=== PATIENT | female | born 1995 | race Caucasian/White ===

== ENCOUNTER 2019-06-13 17:02 | Emergency (ER) | payer MEDICAID ==
[2019-06-13] MEDS ORDERED: FLU Vacc QS2019-20(6MOS+)/PF 60 MCG/0.5 ML SYRINGE IM ONE (17:30)
--- NOTE | 2019-06-13 18:30 | EDM.PDOC ---
ED HPI GENERAL MEDICAL PROBLEM - General Chief Complaint: Back Pain or Injury Stated Complaint: FALL,SLIPPED ON ICE (BACK PAIN) Time Seen by Provider: 06/13/19 18:25 Source of Information: Reports: Patient History Limitations: Reports: No Limitations - History of Present Illness INITIAL COMMENTS - FREE TEXT/NARRATIVE: 23-year-old female attends the ED after being pulled down a flight of concrete stairs outside her home by her dog. She slipped on ice he surface and went down all of the concrete stairs on her lower back and left buttock and hip area. This occurred around 1630 hrs. today. She denies hitting her head or losing consciousness. Denies any pain in her upper extremities such as fingers wrists elbows. Pain is confined primarily to the lower back and left posterior iliac crest and left hip particularly over the greater trochanteric process. She can weight-bear but is limping badly. She reports she's had a previous low back injury. Onset: Today Onset Date: 06/13/19 Onset Time: 16:30 Duration: Hour(s): Location: Reports: Back, Pelvis (Lower back left pelvic brim of the pelvis), Lower Extremity, Left Quality: Reports: Ache (Left hip particular greater trochanteric process), Throbbing Severity: Moderate Improves with: Reports: Rest (7 out of 10) Worsens with: Reports: Other, Movement Context: Reports: Trauma (Slipped and fell while her dog pulled her down a flight of concrete stairs outside her home.). Denies: Activity (An attempt to weight-bear), Exercise, Lifting, Sick Contact Associated Symptoms: Reports: No Other Symptoms Treatments OFFICE ASSISTANT RECEPTIONIST: Reports: Other (see below) (None.) Right Back Pain Score (Numeric/FACES): 6 - Related Data Allergies Allergy/AdvReac Type Severity Reaction Status Date / Time metoclopramide [From Reglan] Allergy Disorientat Verified 06/13/19 17:15 ion prochlorperazine Allergy Disorientat Verified 06/13/19 17:15 [From Compazine] ion Home Meds: Home Meds Naproxen Sodium [Aleve] 1 tab PO DAILY PRN 06/13/19 [History] Omeprazole 20 mg PO DAILY 06/13/19 [History] oxyCODONE HCl/Acetaminophen [Percocet 5-325 mg Tablet] 1 - 2 each PO Q4H PRN # 20 tablet 06/13/19 [Rx] Past Medical History HEENT History: Reports: Impaired Vision Gastrointestinal History: Reports: GERD Neurological History: Reports: Migraines Psychiatric History: Reports: Anxiety, Depression - Past Surgical History HEENT Surgical History: Reports: Tonsillectomy GI Surgical History: Reports: Cholecystectomy Musculoskeletal Surgical History: Reports: Other (See Below) Other Musculoskeletal Surgeries/Procedures:: left dorsal tendon release Social & Family History - Family History Family Medical History: Noncontributory - Tobacco Use Smoking Status *Q: Never Smoker - Caffeine Use Caffeine Use: Reports: Coffee - Recreational Drug Use Recreational Drug Use: No - Living Situation & Occupation Living situation: Reports: Single Occupation: Employed ED ROS GENERAL - Review of Systems Review Of Systems: See Below Constitutional: Denies: Fever, Chills, Malaise, Weakness, Fatigue HEENT: Reports: No Symptoms Respiratory: Reports: No Symptoms Cardiovascular: Reports: No Symptoms Endocrine: Reports: No Symptoms GI/Abdominal: Reports: Other : Reports: No Symptoms Musculoskeletal: Reports: Back Pain (Chronic low back pain.) Skin: Reports: No Symptoms Neurological: Reports: No Symptoms Psychiatric: Reports: No Symptoms ED EXAM,LOWER BACK PAIN/INJURY - Physical Exam Exam: See Below Exam Limited By: No Limitations General Appearance: Alert, WD/WN, Mild Distress, Other (Vital signs show temperature 36.7. Heart rate is 84 and sinuses pressure to 16 with O2 sats of 99 %. BP is mildly elevated at 1 4101.) Throat/Mouth: Normal Inspection, Normal Lips, Normal Oropharynx, Other Head: Atraumatic (No dental or tongue injuries.), Normocephalic, Other. No: Facial Swelling, Facial Tenderness Neck: Normal Inspection, Supple (No signs of head or facial trauma.), Non-Tender , Full Range of Motion. No: Lymphadenopathy (L), Lymphadenopathy (R) Respiratory/Chest: No Respiratory Distress, Lungs Clear, Normal Breath Sounds ( No chest wall injuries.), No Accessory Muscle Use, Chest Non-Tender, Other Cardiovascular: Normal Peripheral Pulses, Regular Rate, Rhythm, No Edema, No Gallop, No Murmur, No Rub GI/Abdominal: No Organomegaly, No Mass Back Exam: Other (Patient is tender in the midline of the lumbar spine particularly L3-4 and 5 levels. Tender transverse processes on the left side as well at the same levels. Tender in the quadratus lumborum muscles of the left side and over the posterior iliac crest. Also pain in the buttock with no palpable hematoma yet and pain in the greater trochanter of her left hip. Over the bursa. She is able to weight-bear but is limping). No: CVA Tenderness (L), CVA Tenderness (R) Extremities: Normal Inspection, Other (Length limping gait due to pain in the left lateral hip and buttock musculature ). No: Normal Range of Motion, Non- Tender Neurological: Alert, Normal Mood/Affect, Normal Dorsiflexion, CN II-XII Intact, Normal Reflexes. No: Normal Gait Psychiatric: Normal Affect, Normal Mood Skin Exam: Warm, Dry, Intact, Normal Color, No Rash Course - Vital Signs Last Recorded V/S: Last Vital Signs Temp 36.7 C 06/13/19 17:11 Pulse 84 06/13/19 17:11 Resp 16 06/13/19 17:11 BP 148/101 H 06/13/19 17:11 Pulse Ox 99 06/13/19 17:11 - Orders/Labs/Meds Orders: Active Orders 24 hr Category Date Time Status Influenza Vaccine Charge [RC] .DISCHARGE Care 06/13/19 17:18 Active Lumbar Spine 2 or 3V [CR] Stat Exams 06/13/19 18:29 Taken Pelvis 1V or 2V [CR] Stat Exams 06/13/19 18:28 Taken Meds: Medications Discontinued Medications Generic Name Dose Route Start Last Admin Trade Name Freq PRN Reason Stop Dose Admin Influenza Virus Vaccine 1 each 06/13/19 17:18 Pharmacy To Dose - Influenza Vaccine IM 06/13/19 17:19 ONETIME ONE Influenza Virus Vaccine 60 mcg 06/13/19 17:30 06/13/19 17:29 Fluzone Quad [id number] Syringe IM 06/13/19 17:31 60 mcg .ONCE ONE Administration - Radiology Interpretation Free Text/Narrative:: 23-year-old female presents to the ED after slipping and falling down concrete stairs outside her home while taking her dog for a walk. The dog Avelina date good jerk causing her to lose her balance and she fell down the stairs injuring her lower back particularly L3-4 and 5 level and left buttock and left pelvic crest particularly posteriorly and the left greater trochanter of her hip. She is walking with a definitive limp. Plan x-ray lumbar spine 3 view and x-ray of the pelvis to be done. - Re-Assessments/Exams Free Text/Narrative Re-Assessment/Exam: 06/13/19 19:14 x-rays of the lumbar spine reveal no fractures. There was an area of questionable fracture across the transverse process on the left side at L4 but I think it is artifact. X-rays of the pelvis also did not reveal any fractures within the pelvis or hips. Treatment is ice pack to the hip one half hour out of every 4 hours for the next 2-3 days. Continue Aleve 2 tablets every 8 hours to reduce pain and inflammation. Percocet tabs 5/325 mg one or 2 every 4 -6 hours as needed for pain relief for the next 3 or 4 days. 20 tablets provided Expect to be much more stiff and sore over the next 24-48 hours and then slowly improved. Suggest chiropractic manipulation under left upper back as he appears to be rib head subluxation at thoracic level 9-10. Departure - Departure Time of Disposition: 19:16 Disposition: Home, Self-Care 01 Condition: Fair Clinical Impression: Contusion of left hip, initial encounter, Contusion of lower back and pelvis, initial encounter Contusion of buttock Qualifiers: Encounter type: initial encounter Qualified Code(s): S30.0XXA - Contusion of lower back and pelvis, initial encounter - Discharge Information *PRESCRIPTION DRUG MONITORING PROGRAM REVIEWED*: No *COPY OF PRESCRIPTION DRUG MONITORING REPORT IN PATIENT DHIRAJ: No Prescriptions: oxyCODONE HCl/Acetaminophen [Percocet 5-325 mg Tablet] 1 - 2 each PO Q4H PRN # 20 tablet PRN Reason: pain relief. Instructions: Muscle Strain, [id number], Contusion, [id number], Chronic Back Pain Referrals: Marie Osullivan MD [Primary Care Provider] - Forms: ED Department Discharge Additional Instructions: Evaluation in the emergency him today in regards to slip and fall down concrete stairs with blunt trauma to your lower back and left posterior iliac crest and buttock and left hip. X-rays of the pelvis and lumbar spine proved to be negative for any bony injuries. Soft tissue injuries to the underlying muscles have occurred. Bleeding into the soft tissues goes on for up to 48 hours post injury. Ideally rest and ice for the next 48 hours to sore areas. Continue Aleve 2 tablets every 8 hours as needed to reduce pain and inflammation. Etc. tablets 5/325 mg one or 2 every 4-6 hours as needed for pain relief for the next 2-3 days. Expect pain and tenderness to worsen over the next 24-48 hours and then gradually improved. Again suggest follow-up with chiropractor later this week as planned. - My Orders Last 24 Hours: My Active Orders 06/13/19 18:28 Pelvis 1V or 2V [CR] Stat 06/13/19 18:29 Lumbar Spine 2 or 3V [CR] Stat - Assessment/Plan Last 24 Hours: My Active Orders 06/13/19 18:28 Pelvis 1V or 2V [CR] Stat 06/13/19 18:29 Lumbar Spine 2 or 3V [CR] Stat
--- NOTE | 2019-06-14 07:10 | CR ---
Pelvis: AP view of the pelvis was obtained. Comparison: No prior pelvis exam. Joint spaces within both hips are maintained. Sacroiliac joints appear within normal limits. Incidental note of IUD within the pelvis. No fracture or other bony abnormality is seen. Impression: 1. Nothing acute is identified on AP pelvis study. Diagnostic code #1
--- NOTE | 2019-06-14 07:22 | CR ---
Lumbar spine: AP, lateral and coned down lateral views centered to the lumbosacral junction were obtained. Comparison: No previous lumbar spine imaging. Vertebral body heights and disc spaces are maintained. Pedicles are intact. Transverse and spinous processes are intact. Surgical clips are noted from prior cholecystectomy. IUD is noted within the pelvis. Impression: 1. Findings which are felt to be incidental. 2. Nothing acute is appreciated on three-view lumbar spine study. Diagnostic code #2
== END 2019-06-13 19:39 | disposition home or self-care (01) ==
LOC: JD.ED 17:02
DX: S30.0XXA Contusion of lower back and pelvis, initial encounter (principal); S70.02XA Contusion of left hip, initial encounter; Z23 Encounter for immunization; K21.9 Gastro-esophageal reflux disease without esophagitis; Z88.8 Allergy status to other drugs, medicaments and biological substances; Z79.899 Other long term (current) drug therapy; W00.1XXA Fall from stairs and steps due to ice and snow, initial encounter; Y92.009 Unspecified place in unspecified non-institutional (private) residence as the place of occurrence of the external cause
CPT/HCPCS: 72100; 72100-26; 72170; 72170-26; 90471; 90686; 99283; 99283-25

== ENCOUNTER 2019-07-06 21:09 | Emergency (ER) | payer MEDICAID ==
--- NOTE | 2019-07-06 21:46 | EDM.PDOC ---
ED HPI GENERAL MEDICAL PROBLEM - General Chief Complaint: Back Pain or Injury Stated Complaint: FALL ON ICE Time Seen by Provider: 07/06/19 21:31 Source of Information: Reports: Patient, RN Notes Reviewed - History of Present Illness INITIAL COMMENTS - FREE TEXT/NARRATIVE: 23 year old female slipped on ice this past morning 8 to 10 hrs ago. Her feet and legs went forward falling flat on her back. She thinks she hit her head but no LOC. She has had some Shepherd today but not severe. Mild neck soreness. Major pain is Low back and also L ribs. States she fell more to the L side. There has been no nausea or vomiting. She is not short of breath. She does feel L chest wall pain with certain motion and with deep breathing. Middle Back Pain Score (Numeric/FACES): 8 - Related Data Allergies Allergy/AdvReac Type Severity Reaction Status Date / Time metoclopramide [From Reglan] Allergy Disorientat Verified 07/06/19 21:25 ion prochlorperazine Allergy Disorientat Verified 07/06/19 21:25 [From Compazine] ion sumatriptan [From Imitrex] Allergy Airway Verified 07/06/19 21:25 Tightness Home Meds: Home Meds . [No Known Home Meds] 07/06/19 [History] Past Medical History HEENT History: Reports: Impaired Vision Gastrointestinal History: Reports: GERD Neurological History: Reports: Migraines Psychiatric History: Reports: Anxiety, Depression, Suicidal Ideation - Past Surgical History HEENT Surgical History: Reports: Oral Surgery, Tonsillectomy Other HEENT Surgeries/Procedures: [place] teeth extraction GI Surgical History: Reports: Cholecystectomy Musculoskeletal Surgical History: Reports: Other (See Below) Other Musculoskeletal Surgeries/Procedures:: left dorsal tendon release Social & Family History - Family History Family Medical History: Noncontributory - Tobacco Use Smoking Status *Q: Former Smoker Used Tobacco, but Quit: Yes Month/Year Tobacco Last Used: 2017 - Caffeine Use Caffeine Use: Reports: Coffee - Recreational Drug Use Recreational Drug Use: No - Living Situation & Occupation Living situation: Reports: Single Occupation: Employed ED ROS GENERAL - Review of Systems Review Of Systems: See Below Constitutional: Reports: No Symptoms HEENT: Denies: Ear Discharge, Vertigo, Vision Change Respiratory: Reports: Pleuritic Chest Pain. Denies: Shortness of Breath Cardiovascular: Reports: Chest Pain GI/Abdominal: Denies: Abdominal Pain, Nausea, Vomiting Musculoskeletal: Reports: Neck Pain (mild neck soreness), Shoulder Pain (Mild L shoulder pain ) Skin: Denies: Bruising Neurological: Reports: Dizziness (mild), Headache. Denies: Numbness, Tingling, Trouble Speaking, Difficulty Walking, Weakness, Change in Speech, Gait Disturbance ED EXAM,LOWER BACK PAIN/INJURY - Physical Exam Exam: See Below General Appearance: Alert, No Apparent Distress Eye Exam: Bilateral Eye: PERRL Ears: Normal External Exam Nose: Normal Inspection Throat/Mouth: Normal Inspection Head: Atraumatic, Other (no scalp swelling or tenderness, no facial swelling) Respiratory/Chest: No Respiratory Distress, Lungs Clear, Normal Breath Sounds, Other (very mild tenderness L lat chest wall) GI/Abdominal: Soft, Non-Tender Back Exam: Paraspinal Tenderness (mild low back tenderness) Extremities: Normal Inspection, Normal Range of Motion Neurological: Alert, No Motor/Sensory Deficits, Other (finger to nose normal) Skin Exam: Warm, Dry, Normal Color Course - Vital Signs Last Recorded V/S: Last Vital Signs Temp 98.2 F 07/06/19 21:26 Pulse 90 07/06/19 21:26 Resp 18 07/06/19 21:26 BP 129/92 H 07/06/19 21:26 Pulse Ox 100 07/06/19 21:26 - Re-Assessments/Exams Free Text/Narrative Re-Assessment/Exam: 07/07/19 09:59 CT of head was not clinically indicated. I did offer to check Xrays of Lumbar spine and L ribs although clinically the liklihood of fx is very low. She does not feel anything is broken. She did want to have an eval. to be safe. Discharge instr. as documented. Departure - Departure Time of Disposition: 22:00 Disposition: Home, Self-Care 01 Condition: Fair Clinical Impression: Fall Qualifiers: Encounter type: initial encounter Qualified Code(s): W19.XXXA - Unspecified fall, initial encounter Chest wall contusion Qualifiers: Encounter type: initial encounter Laterality: left Qualified Code(s): S20.212A - Contusion of left front wall of thorax, initial encounter Contusion of lower back Qualifiers: Encounter type: initial encounter Qualified Code(s): S30.0XXA - Contusion of lower back and pelvis, initial encounter Head concussion Qualifiers: Encounter type: initial encounter Loss of consciousness presence/duration: without LOC Qualified Code(s): S06.0X0A - Concussion without loss of consciousness, initial encounter - Discharge Information Instructions: Contusion, [id number] Referrals: Marie Osullivan MD [Primary Care Provider] - Forms: ED Department Discharge Additional Instructions: rest, increase activity slowly as tolerated. Alternate ice and heat to areas of injury as needed. Aleve twice daily with food, you may take tylenol in addition up to 3 times daily if needed for further pain relief. Follow up clinic if not much better within 2 to 3 days as expected. Return to ED as needed if symptoms worsening in any way.
== END 2019-07-06 22:13 | disposition home or self-care (01) ==
LOC: JD.ED 21:09
DX: S06.0X0A Concussion without loss of consciousness, initial encounter (principal); S30.0XXA Contusion of lower back and pelvis, initial encounter; S20.212A Contusion of left front wall of thorax, initial encounter; Z87.891 Personal history of nicotine dependence; Z88.8 Allergy status to other drugs, medicaments and biological substances; W00.0XXA Fall on same level due to ice and snow, initial encounter
CPT/HCPCS: 99282; 99283

== ENCOUNTER 2020-03-17 10:20 | Emergency (ER) | payer OTHER, MEDICAID ==
--- NOTE | 2020-03-17 10:55 | EDM.PDOC ---
ED HPI GENERAL MEDICAL PROBLEM - General Chief Complaint: Back Pain or Injury Stated Complaint: LOWER BACK PAIN Time Seen by Provider: 03/17/20 10:44 - History of Present Illness INITIAL COMMENTS - FREE TEXT/NARRATIVE: This 24-year-old female presents the emergency room with low back pain. This started after cleaning the garage 2 days ago. And she admits she was lifting some stuff that she probably should have lifted by herself and was not using proper lifting technique.. She has injured her back in the past. Last night she did take a muscle relaxant that in 2014 and she had some relief with that was able to rest did not necessarily sleep too good. Patient has no loss of bowel or bladder control no numbness or tingling sensation in her feet or legs. Left Lower Back Pain Score (Numeric/FACES): 8 - Related Data Allergies Allergy/AdvReac Type Severity Reaction Status Date / Time metoclopramide [From Reglan] Allergy Disorientat Verified 07/06/19 21:25 ion prochlorperazine Allergy Disorientat Verified 07/06/19 21:25 [From Compazine] ion sumatriptan [From Imitrex] Allergy Airway Verified 07/06/19 21:25 Tightness Home Meds: Home Meds Cyclobenzaprine [Flexeril] 10 mg PO BEDTIME PRN #10 tab 03/17/20 [Rx] Past Medical History HEENT History: Reports: Impaired Vision Gastrointestinal History: Reports: GERD Neurological History: Reports: Migraines Psychiatric History: Reports: Anxiety, Depression, Suicidal Ideation - Past Surgical History HEENT Surgical History: Reports: Oral Surgery, Tonsillectomy Other HEENT Surgeries/Procedures: [place] teeth extraction GI Surgical History: Reports: Cholecystectomy Musculoskeletal Surgical History: Reports: Other (See Below) Other Musculoskeletal Surgeries/Procedures:: left dorsal tendon release Social & Family History - Family History Family Medical History: Noncontributory - Tobacco Use Smoking Status *Q: Never Smoker - Caffeine Use Caffeine Use: Reports: Coffee - Living Situation & Occupation Living situation: Reports: Single Occupation: Employed ED ROS GENERAL - Review of Systems Review Of Systems: See Below Constitutional: Reports: No Symptoms. Denies: Fever, Chills Respiratory: Reports: No Symptoms Cardiovascular: Reports: No Symptoms GI/Abdominal: Reports: No Symptoms : Reports: No Symptoms Musculoskeletal: Reports: Back Pain Skin: Reports: No Symptoms Neurological: Reports: No Symptoms ED EXAM,LOWER BACK PAIN/INJURY - Physical Exam Exam: See Below Exam Limited By: No Limitations General Appearance: Alert, No Apparent Distress Head: Atraumatic, Normocephalic Neck: Normal Inspection, Supple, Non-Tender, Full Range of Motion. No: Lymphadenopathy (L), Lymphadenopathy (R) Respiratory/Chest: No Respiratory Distress, Lungs Clear, Normal Breath Sounds Cardiovascular: Regular Rate, Rhythm, No Edema, No Murmur GI/Abdominal: Normal Bowel Sounds, Soft, Non-Tender Back Exam: Normal Inspection, Other (Has some left paraspinous muscle spasm. This extends into the buttocks but really does not go into the thigh very far. Straight leg raises are nondiagnostic). No: Vertebral Tenderness Course - Vital Signs Last Recorded V/S: Last Vital Signs Temp 36.7 C 03/17/20 10:29 Pulse 93 03/17/20 10:29 Resp 18 03/17/20 10:29 BP 135/97 H 03/17/20 10:29 Pulse Ox 100 03/17/20 10:29 - Orders/Labs/Meds Meds: Medications Discontinued Medications Generic Name Dose Route Start Last Admin Trade Name Maik PRN Reason Stop Dose Admin Ketorolac Tromethamine 30 mg 03/17/20 11:00 03/17/20 11:12 Toradol IM 03/17/20 11:01 30 mg ONETIME ONE Administration - Re-Assessments/Exams Free Text/Narrative Re-Assessment/Exam: 03/17/20 11:27 At this point we gave shot of Toradol 30 mg IM the patient is noticing some improvement. We will discharge her home with a prescription of Flexeril to use at bedtime. Departure - Departure Time of Disposition: 11:28 Disposition: Home, Self-Care 01 Clinical Impression: Low back strain - Discharge Information Referrals: Marie Osullivan NP [Primary Care Provider] - Forms: ED Department Discharge Additional Instructions: Return to the emergency room with any questions problems or worsening symptoms. Use the naproxen 2 pills twice daily with your morning and evening meals. You have been given a prescription for Flexeril, cyclobenzaprine, this is a muscle relaxant take 1 nightly for the next 3-4 nights and then as needed thereafter. Follow-up in the clinic next week if needed. Sepsis Event Note (ED) - Evaluation Sepsis Screening Result: No Definite Risk - Focused Exam Vital Signs: Vital Signs Temp Pulse Resp BP Pulse Ox 03/17/20 10:29 36.7 C 93 18 135/97 H 100
[2020-03-17] MEDS ORDERED: Ketorolac 30 MG/ML SDV IM ONE (11:00)
== END 2020-03-17 11:50 | disposition home or self-care (01) ==
LOC: JD.ED 10:20
DX: S39.012A Strain of muscle, fascia and tendon of lower back, initial encounter (principal); Z88.8 Allergy status to other drugs, medicaments and biological substances; X50.9XXA Other and unspecified overexertion or strenuous movements or postures, initial encounter
CPT/HCPCS: 96372; 99283; J1885

== ENCOUNTER 2021-02-24 09:35 | Emergency (ER) | payer MEDICAID, OTHER ==
--- NOTE | 2021-02-24 10:05 | EDM.PDOC ---
ED HPI GENERAL MEDICAL PROBLEM - General Chief Complaint: Back Pain or Injury Stated Complaint: BACK PAIN Time Seen by Provider: 02/24/21 10:02 Source of Information: Reports: Patient, RN Notes Reviewed - History of Present Illness INITIAL COMMENTS - FREE TEXT/NARRATIVE: 25 yr old female with exacerbation of low back pain that she has had chronically for at least several yrs. Has been prescribed tramadol in the past which has helped, ran out a few weeks ago. 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 - Related Data Allergies Allergy/AdvReac Type Severity Reaction Status Date / Time metoclopramide [From Reglan] Allergy Disorientat Verified 02/24/21 09:45 ion prochlorperazine Allergy Disorientat Verified 02/24/21 09:45 [From Compazine] ion sumatriptan [From Imitrex] Allergy Airway Verified 02/24/21 09:45 Tightness Home Meds: Home Meds Ibuprofen [Motrin] 800 mg PO TID #20 tablet 02/24/21 [Rx] traMADol [Ultram] 50 mg PO Q6H PRN #20 tab 02/24/21 [Rx] Past Medical History HEENT History: Reports: Impaired Vision Gastrointestinal History: Reports: GERD Musculoskeletal History: Reports: Back Pain, Chronic Neurological History: Reports: Headaches, Chronic, Migraines Psychiatric History: Reports: Anxiety, Depression, Suicidal Ideation Endocrine/Metabolic History: Reports: Obesity/BMI 30+ - Past Surgical History HEENT Surgical History: Reports: Oral Surgery, Tonsillectomy Other HEENT Surgeries/Procedures: [place] teeth extraction GI Surgical History: Reports: Cholecystectomy Musculoskeletal Surgical History: Reports: Other (See Below) Other Musculoskeletal Surgeries/Procedures:: left dorsal tendon release Social & Family History - Family History Family Medical History: No Pertinent Family History - Tobacco Use Tobacco Use Status *Q: Never Tobacco User Second Hand Smoke Exposure: No - Caffeine Use Caffeine Use: Reports: Coffee, Tea - Recreational Drug Use Recreational Drug Use: Yes Drug Use in Last 12 Months: Yes Recreational Drug Type: Reports: Marijuana/Hashish Recreational Drug Use Frequency: Daily Recreational Drug Last Use: 02/23/21 - Living Situation & Occupation Living situation: Reports: Single Occupation: Employed ED ROS GENERAL - Review of Systems Review Of Systems: See Below Constitutional: Denies: Fever, Chills HEENT: Reports: No Symptoms Respiratory: Reports: No Symptoms Cardiovascular: Reports: No Symptoms GI/Abdominal: Reports: No Symptoms Musculoskeletal: Reports: Back Pain. Denies: Leg Pain Skin: Reports: No Symptoms Neurological: Reports: No Symptoms ED EXAM,LOWER BACK PAIN/INJURY - Physical Exam Exam: See Below General Appearance: Alert, Mild Distress Head: Atraumatic Neck: Supple Respiratory/Chest: No Respiratory Distress Back Exam: Paraspinal Tenderness (L low back, no visible swelling or erythema) Extremities: Normal Inspection, Normal Range of Motion Neurological: Alert, No Motor/Sensory Deficits Course - Vital Signs Last Recorded V/S: Last Vital Signs Temp 97.3 F 02/24/21 09:42 Pulse 95 02/24/21 09:42 Resp 14 02/24/21 09:42 BP 124/98 H 02/24/21 09:48 Pulse Ox 100 02/24/21 09:42 Departure - Departure Time of Disposition: 10:16 Disposition: Home, Self-Care 01 Condition: Fair Clinical Impression: Back pain Qualifiers: Back pain location: low back pain Chronicity: acute Back pain laterality: midline Sciatica presence: without sciatica Qualified Code(s): M54.5 - Low back pain - Discharge Information Prescriptions: Ibuprofen [Motrin] 800 mg PO TID #20 tablet traMADol [Ultram] 50 mg PO Q6H PRN #20 tab PRN Reason: Pain Instructions: Acute Back Pain, Adult Referrals: Marie Osullivan GROUP BURNER MACHINE [Primary Care Provider] - Forms: ED Department Discharge Additional Instructions: motrin 800 mg 3 times daily for pain and inflammation. Tylenol in addition in between doses for extra pain relief. You may take tramadol q 6 to 8 hr for severe pain and especially at bedtime. [facility]. Alternate ice and heat as needed. Follow up clinic in about 5 to 7 days if not much better as expected. Sepsis Event Note (ED) - Evaluation Sepsis Screening Result: No Definite Risk - Focused Exam Vital Signs: Vital Signs Temp Pulse Resp BP Pulse Ox 02/24/21 09:48 124/98 H 02/24/21 09:42 97.3 F 95 14 132/109 H 100
== END 2021-02-24 10:28 | disposition home or self-care (01) ==
LOC: JD.ED 09:35
DX: M54.5 Low back pain (principal); E66.9 Obesity, unspecified; Z68.35 Body mass index [BMI] 35.0-35.9, adult; Z88.8 Allergy status to other drugs, medicaments and biological substances
CPT/HCPCS: 99283

== ENCOUNTER 2021-04-09 12:47 | Emergency (ER) | payer MEDICAID ==
--- NOTE | 2021-04-09 14:12 | EDM.PDOC ---
ED HPI GENERAL MEDICAL PROBLEM - General Chief Complaint: Respiratory Problem Stated Complaint: COVID SX Time Seen by Provider: 04/09/21 13:33 Source of Information: Reports: Patient History Limitations: Reports: No Limitations - History of Present Illness INITIAL COMMENTS - FREE TEXT/NARRATIVE: 25-year-old female presents the emergency department with complaints of sore throat, decreased appetite, headache, cough, shortness of breath, nausea, diarrhea and decreased taste and smell. The patient states she was tested for Covid yesterday at the walk-in clinic and it was negative however today when she lost her taste and smell she elected to come to the emergency department. She states she has had her Covid vaccinations, Materna. She states prior to this she was healthy and has no significant past medical history. 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 (see below) Other Treatments VISCOSITY INSPECTOR: nyquil; mucinex Headache Pain Score (Numeric/FACES): 6 Throat Pain Score (Numeric/FACES): 7 Generalized Pain Score (Numeric/FACES): 7 - Related Data Allergies Allergy/AdvReac Type Severity Reaction Status Date / Time sumatriptan [From Imitrex] Allergy Severe Airway Verified 04/09/21 13:39 Tightness metoclopramide [From Reglan] AdvReac Severe Disorientat Verified 04/09/21 13:39 ion prochlorperazine AdvReac Severe Disorientat Verified 04/09/21 13:39 [From Compazine] ion Home Meds: Home Meds Ibuprofen [Motrin] 800 mg PO TID PRN 04/09/21 [History] Past Medical History HEENT History: Reports: Impaired Vision Gastrointestinal History: Reports: GERD Musculoskeletal History: Reports: Back Pain, Chronic Neurological History: Reports: Headaches, Chronic, Migraines Psychiatric History: Reports: Anxiety, Depression, Suicidal Ideation Endocrine/Metabolic History: Reports: Obesity/BMI 30+ - Past Surgical History HEENT Surgical History: Reports: Oral Surgery, Tonsillectomy Other HEENT Surgeries/Procedures: [place] teeth extraction GI Surgical History: Reports: Cholecystectomy Musculoskeletal Surgical History: Reports: Other (See Below) Other Musculoskeletal Surgeries/Procedures:: left dorsal tendon release Social & Family History - Family History Family Medical History: No Pertinent Family History - Tobacco Use Tobacco Use Status *Q: Former Tobacco User Used Tobacco, but Quit: Yes Month/Year Tobacco Last Used: 4 yr - Caffeine Use Caffeine Use: Reports: Coffee - Recreational Drug Use Recreational Drug Type: Reports: Other (see below) Other Recreational Drug Type: medical card for marijuana fo backpain - Living Situation & Occupation Living situation: Reports: Single Occupation: Employed ED ROS GENERAL - Review of Systems Review Of Systems: Comprehensive ROS is negative, except as noted in HPI. ED EXAM, GENERAL - Physical Exam Exam: See Below Exam Limited By: No Limitations General Appearance: Alert, WD/WN, Mild Distress Ears: Normal External Exam, Hearing Grossly Normal Nose: Normal Inspection Throat/Mouth: Normal Inspection, Normal Lips, Normal Voice, No Airway Compromise Head: Atraumatic Neck: Normal Inspection, Supple Respiratory/Chest: No Respiratory Distress, Lungs Clear, No Accessory Muscle Use, Chest Non-Tender, Decreased Breath Sounds Cardiovascular: Normal Peripheral Pulses, Regular Rate, Rhythm, No Murmur Peripheral Pulses: 2+: Radial (L), Radial (R) GI/Abdominal: Normal Bowel Sounds, Soft, Non-Tender, No Distention (Female) Exam: Deferred Rectal (Female) Exam: Deferred Back Exam: Normal Inspection Extremities: Normal Inspection Neurological: Alert, Oriented, Normal Cognition Psychiatric: Normal Affect, Normal Mood Skin Exam: Warm, Dry, Intact, Normal Color, No Rash Lymphatic: No Adenopathy Course - Vital Signs Text/Narrative:: Patient presents with Covid type symptoms despite having her vaccination. States she tested negative for Covid yesterday however lost her sense of taste and smell today and elected to come to the ER. I have ordered a Covid swab as well as labs to include CBC, BMP, hepatic function studies, ferritin, LDH, portable chest x-ray and an EKG. Last Recorded V/S: Last Vital Signs Temp 97.8 F 04/09/21 13:45 Pulse 103 H 04/09/21 13:45 Resp 20 04/09/21 13:45 BP 130/82 04/09/21 13:45 Pulse Ox 96 04/09/21 13:45 - Orders/Labs/Meds Orders: Active Orders 24 hr Category Date Time Status Nurse Communication: Isolation [RC] ASDIRECTED Care 04/09/21 14:07 Active Isolation [COMM] Stat Oth 04/09/21 14:06 Ordered Labs: Laboratory Tests 09/06/21 09/06/21 09/06/21 Range/Units 14:15 14:19 14:19 WBC (3.98-10.04) K/mm3 RBC (3.98-5.22) M/mm3 Hgb (11.2-15.7) gm/dl Hct (34.1-44.9) % MCV (79.4-94.8) fl MCH (25.6-32.2) pg MCHC (32.2-35.5) g/dl RDW Std Deviation (36.4-46.3) fL Plt Count (182-369) K/mm3 MPV (9.4-12.3) fl Neut % (Auto) (34.0-71.1) % Lymph % (Auto) (19.3-51.7) % Leon % (Auto) (4.7-12.5) % Eos % (Auto) (0.7-5.8) Baso % (Auto) (0.1-1.2) % Neut # (Auto) (1.56-6.13) K/mm3 Lymph # (Auto) (1.18-3.74) K/mm3 Leon # (Auto) (0.24-0.36) K/mm3 Eos # (Auto) (0.04-0.36) K/mm3 Baso # (Auto) (0.01-0.08) K/mm3 D-Dimer, Quantitative 0.22 (0.19-0.50) mg/L Sodium (136-145) mEq/L Potassium (3.5-5.1) mEq/L Chloride (98-107) mEq/L Carbon Dioxide (21-32) mEq/L Anion Gap (5-15) BUN (7-18) mg/dL Creatinine (0.55-1.02) mg/dL Est Cr Clr Drug Dosing mL/min Estimated GFR (MDRD) (>60) mL/min BUN/Creatinine Ratio (14-18) Glucose (70-99) mg/dL Calcium (8.5-10.1) mg/dL Ferritin 40 (8-252) ng/ml Total Bilirubin (0.2-1.0) mg/dL Direct Bilirubin (0.0-0.2) mg/dl Indirect Bilirubin AST (15-37) U/L ALT (14-59) U/L Alkaline Phosphatase (46-116) U/L Lactate Dehydrogenase (81-234) U/L C-Reactive Protein (<1.0) mg/dL Total Protein (6.4-8.2) g/dl Albumin (3.4-5.0) g/dl Globulin gm/dL Albumin/Globulin Ratio (1-2) SARS-CoV-2 RNA (ANA) Negative (NEGATIVE) 04/09/21 04/09/21 Range/Units 14:19 14:19 WBC 8.38 (3.98-10.04) K/mm3 RBC 4.64 (3.98-5.22) M/mm3 Hgb 13.4 (11.2-15.7) gm/dl Hct 40.8 (34.1-44.9) % MCV 87.9 (79.4-94.8) fl MCH 28.9 (25.6-32.2) pg MCHC 32.8 (32.2-35.5) g/dl RDW Std Deviation 43.4 (36.4-46.3) fL Plt Count 263 (182-369) K/mm3 MPV 9.6 (9.4-12.3) fl Neut % (Auto) 56.9 (34.0-71.1) % Lymph % (Auto) 33.9 (19.3-51.7) % Leon % (Auto) 8.4 (4.7-12.5) % Eos % (Auto) 0.5 L (0.7-5.8) Baso % (Auto) 0.2 (0.1-1.2) % Neut # (Auto) 4.77 (1.56-6.13) K/mm3 Lymph # (Auto) 2.84 (1.18-3.74) K/mm3 Leon # (Auto) 0.70 H (0.24-0.36) K/mm3 Eos # (Auto) 0.04 (0.04-0.36) K/mm3 Baso # (Auto) 0.02 (0.01-0.08) K/mm3 D-Dimer, Quantitative (0.19-0.50) mg/L Sodium 140 (136-145) mEq/L Potassium 3.9 (3.5-5.1) mEq/L Chloride 106 (98-107) mEq/L Carbon Dioxide 24 (21-32) mEq/L Anion Gap 13.9 (5-15) BUN 6 L (7-18) mg/dL Creatinine 0.6 (0.55-1.02) mg/dL Est Cr Clr Drug Dosing 128.98 mL/min Estimated GFR (MDRD) > 60 (>60) mL/min BUN/Creatinine Ratio 10.0 L (14-18) Glucose 81 (70-99) mg/dL Calcium 8.9 (8.5-10.1) mg/dL Ferritin (8-252) ng/ml Total Bilirubin 0.4 (0.2-1.0) mg/dL Direct Bilirubin 0.10 (0.0-0.2) mg/dl Indirect Bilirubin 0.30 AST 17 (15-37) U/L ALT 19 (14-59) U/L Alkaline Phosphatase 89 (46-116) U/L Lactate Dehydrogenase 187 (81-234) U/L C-Reactive Protein 0.2 (<1.0) mg/dL Total Protein 8.1 (6.4-8.2) g/dl Albumin 3.8 (3.4-5.0) g/dl Globulin 4.3 gm/dL Albumin/Globulin Ratio 0.9 L (1-2) SARS-CoV-2 RNA (ANA) (NEGATIVE) - Re-Assessments/Exams Free Text/Narrative Re-Assessment/Exam: 04/09/21 15:06 Nothing acute is appreciated on portable chest x-ray 04/09/21 15:58 Radiologist impression frontal view of the chest: 1. Nothing acute is seen on frontal chest x-ray 04/09/21 15:59 Hematology reveals a WBC of 8.38, hemoglobin 13.4, hematocrit 40.8, platelet count 263 Chemistry reveals a D-dimer of 0.22 Chemistry reveals a sodium of 140, potassium 3.9, anion gap 13.9, BUN 6, creatinine 0.6, glucose 81, ferritin 40, LDH 187, C-reactive protein 0.2 Patient is Covid negative She will be discharged home Departure - Departure Time of Disposition: 16:00 Disposition: Home, Self-Care 01 Condition: Good Clinical Impression: Viral upper respiratory illness - Discharge Information Instructions: Viral Respiratory Infection, [id number] Referrals: Marie Osullivan [employer]CEANOGRAPHY TEACHER [Primary Care Provider] - Forms: ED Department Discharge Additional Instructions: You were seen in the emergency department today with Covid type symptoms despite being vaccinated. Covid swab was completed as well as a chest x-ray and lab studies. These were all negative. You likely have a viral respiratory illness. Go home and rest. Drink plenty of fluids. Follow-up with your primary care provider as needed. Sepsis Event Note (ED) - Focused Exam Vital Signs: Vital Signs Temp Pulse Resp BP Pulse Ox 04/09/21 13:45 97.8 F 103 H 20 130/82 96 - My Orders Last 24 Hours: My Active Orders 04/09/21 14:06 Isolation [COMM] Stat 04/09/21 14:07 Nurse Communication: Isolation [RC] ASDIRECTED - Assessment/Plan Last 24 Hours: My Active Orders 04/09/21 14:06 Isolation [COMM] Stat 04/09/21 14:07 Nurse Communication: Isolation [RC] ASDIRECTED
--- NOTE | 2021-04-09 15:32 | CR ---
Chest: Frontal view of the chest was obtained. Comparison: No prior chest imaging is available. Heart size and mediastinum are within normal limits. Lungs are clear with no acute parenchymal change. No acute osseous abnormality is appreciated. Impression: 1. Nothing acute is seen on frontal chest x-ray. Diagnostic code #1
== END 2021-04-09 16:10 | disposition home or self-care (01) ==
LOC: SUPCPDRO 12:47 → JD.ED 12:47
DX: J06.9 Acute upper respiratory infection, unspecified (principal); E66.9 Obesity, unspecified; Z68.36 Body mass index [BMI] 36.0-36.9, adult; Z87.891 Personal history of nicotine dependence; Z88.8 Allergy status to other drugs, medicaments and biological substances; Z20.822 Contact with and (suspected) exposure to COVID-19
CPT/HCPCS: 36415; 71045; 71045-26; 80048; 80076; 82728; 83615; 85025; 85379; 86140; 99283-25; U0002

== ENCOUNTER 2021-09-10 15:53 | Emergency (ER) | payer BC, MEDICAID ==
[2021-09-10] MEDS ORDERED: Sodium Chloride 0.9% 10 ML Syringe FLUSH PRN (16:15)
[2021-09-10] MEDS ORDERED: Sodium Chloride 0.9% 1,000 ML IV STA (16:47)
[2021-09-10] MEDS ORDERED: Ketorolac 30 MG/ML SDV IVPUSH ONE (16:47)
[2021-09-10] MEDS ORDERED: Ondansetron 4 MG/2 ML SDV IVPUSH ONE (16:47)
[2021-09-10] MEDS ORDERED: Acetaminophen/HYDROcodone 325-5 MG Tab PO ONE (18:11)
[2021-09-10] MEDS ORDERED: HYDROmorphone 0.5 MG/0.5 ML Syringe IVPUSH ONE (18:11)
== END 2021-09-10 18:50 | disposition home or self-care (01) ==
LOC: JD.ED 15:53
DX: R10.31 Right lower quadrant pain (principal); K21.9 Gastro-esophageal reflux disease without esophagitis; E66.9 Obesity, unspecified; Z68.34 Body mass index [BMI] 34.0-34.9, adult; Z88.8 Allergy status to other drugs, medicaments and biological substances
CPT/HCPCS: 36415; 74176; 80053; 81001; 85025; 86140; 96374; 96375; 99284; A9270; J1170; J1885; J2405; J7030

== ENCOUNTER 2021-12-12 11:32 | Emergency (ER) | payer BC ==
[2021-12-12] MEDS ORDERED: Ketorolac 30 MG/ML SDV IVPUSH ONE (11:55)
[2021-12-12] MEDS ORDERED: Ondansetron 4 MG/2 ML SDV IVPUSH ONE (11:55)
[2021-12-12] MEDS ORDERED: Sodium Chloride 0.9% 1,000 ML IV ONE (11:55)
[2021-12-12] MEDS ORDERED: HYDROmorphone 0.5 MG/0.5 ML Syringe IVPUSH ONE (13:37)
== END 2021-12-12 14:30 | disposition home or self-care (01) ==
LOC: JD.ED 11:32
DX: R10.31 Right lower quadrant pain (principal); E66.9 Obesity, unspecified; Z68.35 Body mass index [BMI] 35.0-35.9, adult; Z88.8 Allergy status to other drugs, medicaments and biological substances
CPT/HCPCS: 36415; 74176; 80053; 81001; 83735; 85025; 86140; 96374; 96375; 99284; J1170; J1885; J2405; J7030

== ENCOUNTER 2022-01-08 20:07 | Emergency (ER) | payer BC ==
[2022-01-08] MEDS ORDERED: HYDROmorphone 0.5 MG/0.5 ML Syringe IVPUSH ONE ×3 (20:34→22:50)
[2022-01-08] MEDS ORDERED: Ondansetron 4 MG/2 ML SDV IVPUSH ONE (20:34)
[2022-01-08] MEDS ORDERED: Sodium Chloride 0.9% 10 ML Syringe FLUSH PRN (20:34)
[2022-01-08] MEDS ORDERED: Sodium Chloride 0.9% 1,000 ML IV ONE (20:34)
[2022-01-08] MEDS ORDERED: diphenhydrAMINE 50 MG/ML SDV IVPUSH ONE (20:34)
== END 2022-01-08 23:00 | disposition home or self-care (01) ==
LOC: JD.ED 20:07
DX: G43.909 Migraine, unspecified, not intractable, without status migrainosus (principal); E66.9 Obesity, unspecified; Z68.30 Body mass index [BMI] 30.0-30.9, adult; Z88.8 Allergy status to other drugs, medicaments and biological substances
CPT/HCPCS: 70450; 96361; 96374; 96375; 96376; 99283; J1170; J1200; J2405; J3490; J7030

== ENCOUNTER 2022-10-21 20:31 | Emergency (ER) | payer BC, MEDICAID ==
[2022-10-21] MEDS ORDERED: HYDROmorphone 1 MG/ML Syringe IVPUSH ONE (21:25)
[2022-10-21] MEDS ORDERED: Ondansetron 4 MG/2 ML SDV IVPUSH ONE (21:26)
[2022-10-21] MEDS ORDERED: Ketorolac 30 MG/ML SDV IVPUSH SCH (21:30)
[2022-10-21] MEDS ORDERED: Dextrose 5%-0.9% NaCl 1,000 ML IV SCH (21:30)
[2022-10-21] MEDS ORDERED: Hyoscyamine 0.125 MG Tab.SL SL ONE (22:22)
[2022-10-21] MEDS ORDERED: HYDROmorphone 0.5 MG/0.5 ML Syringe IVPUSH ONE (23:18)
[2022-10-21] MEDS ORDERED: Dicyclomine 10 MG Cap PO ONE (23:55)
== END 2022-10-22 | disposition home or self-care (01) ==
LOC: JD.ED 20:31
DX: N23 Unspecified renal colic (principal); E66.9 Obesity, unspecified; Z68.34 Body mass index [BMI] 34.0-34.9, adult; Z88.8 Allergy status to other drugs, medicaments and biological substances; Z79.899 Other long term (current) drug therapy; Z86.16 Personal history of COVID-19
CPT/HCPCS: 74176; 81001; 96361; 96374; 96375; 96376; 99284; A9270; J1170; J1885; J2405; J7042

== ENCOUNTER 2022-10-26 22:18 | Emergency (ER) | payer BC, MEDICAID ==
[2022-10-27] MEDS ORDERED: Morphine 2 MG/ML SYRINGE IVPUSH ONE (00:25)
[2022-10-27] MEDS ORDERED: Ondansetron 4 MG/2 ML SDV IVPUSH ONE (00:26)
[2022-10-27] MEDS ORDERED: Lactated Ringers 1,000 ML IV SCH (00:30)
[2022-10-27] MEDS ORDERED: Doxycycline Monohydrate 100 MG Cap PO ONE (02:22)
[2022-10-27] MEDS ORDERED: Doxycycline Monohydrate 100 MG Cap ONE (02:33)
== END 2022-10-27 03:00 | disposition home or self-care (01) ==
LOC: JD.ED 22:18
DX: R10.31 Right lower quadrant pain (principal); R10.32 Left lower quadrant pain; J18.9 Pneumonia, unspecified organism; E66.9 Obesity, unspecified; Z68.34 Body mass index [BMI] 34.0-34.9, adult; Z88.8 Allergy status to other drugs, medicaments and biological substances; Z79.899 Other long term (current) drug therapy
CPT/HCPCS: 36415; 71046; 74176; 80053; 81003; 85025; 96361; 96374; 96375; 99284; A9270; J2270; J2405; J7120

== ENCOUNTER 2022-11-18 21:02 | Emergency (ER) | payer BC, MEDICAID ==
[2022-11-18] MEDS ORDERED: Sodium Chloride 0.9% 1,000 ML IV STA (21:22)
[2022-11-18] MEDS ORDERED: Ondansetron 4 MG/2 ML SDV IVPUSH ONE ×2 (21:22→23:07)
[2022-11-18] MEDS ORDERED: Sodium Chloride 0.9% 10 ML Syringe FLUSH PRN (21:23)
[2022-11-18] MEDS ORDERED: Ketorolac 30 MG/ML SDV IVPUSH ONE (21:23)
[2022-11-18] MEDS ORDERED: HYDROmorphone 0.5 MG/0.5 ML Syringe IVPUSH ONE ×2 (21:23→22:31)
[2022-11-18 22:28] LABS: ESTIMATED GFR 121 mL/min (>60)
[2022-11-18] MEDS ORDERED: Acetaminophen/oxyCODONE 325-5 MG Tab PO ONE (22:31)
[2022-11-18] MEDS ORDERED: Cyclobenzaprine 10 MG Tab PO ONE (22:35)
== END 2022-11-18 23:30 | disposition home or self-care (01) ==
LOC: JD.ED 21:02
DX: M54.50 Low back pain, unspecified (principal); E66.9 Obesity, unspecified; Z68.34 Body mass index [BMI] 34.0-34.9, adult; Z88.8 Allergy status to other drugs, medicaments and biological substances; Z86.16 Personal history of COVID-19
CPT/HCPCS: 36415; 80053; 81001; 81025; 85025; 86140; 96361; 96374; 96375; 96376; 99284; A9270; J1170; J1885; J2405; J3490; J7030; 99283

== ENCOUNTER 2023-01-13 19:19 | Emergency (ER) | payer BC, MEDICAID ==
[2023-01-13] MEDS ORDERED: Promethazine 25 MG/ML SDV IM ONE (20:00)
[2023-01-13 20:01] LABS: BASOPHILS ABSOLUTE AUTO 0.02 K/mm3 (0.01-0.08); BASOPHILS PERCENT AUTO 0.3 % (0.1-1.2); EOSINOPHILS ABSOLUTE AUTO 0.22 K/mm3 (0.04-0.36); EOSINOPHILS PERCENT AUTO 3.1 (0.7-5.8); HEMOGLOBIN 12.2 gm/dl (11.2-15.7); IMMATURE GRAN ABSOLUTE AUTO 0.02 K/mm3 (0.00-0.10); IMMATURE GRAN PERCENT AUTO 0.3 % (<=1.0); LYMPHOCYTES ABSOLUTE AUTO 2.16 K/mm3 (1.18-3.74); LYMPHOCYTES PERCENT AUTO 30.6 % (19.3-51.7); MEAN CORPUSCULAR HEMOGLOBIN 29.1 pg (25.6-32.2); MEAN CORPUSCULAR HGB CONC 33.9 g/dl (32.2-35.5); MEAN CORPUSCULAR VOLUME 85.9 fl (79.4-94.8); MEAN PLATELET VOLUME 9.8 fl (9.4-12.3); MONOCYTES ABSOLUTE AUTO 0.61 K/mm3 (0.24-0.36); MONOCYTES PERCENT AUTO 8.7 % (4.7-12.5); NEUTROPHILS ABSOLUTE AUTO 4.02 K/mm3 (1.56-6.13); PLATELET COUNT,PLT 233 K/mm3 (182-369); RED BLOOD CELL COUNT 4.19 M/mm3 (3.98-5.22); WHITE BLOOD CELL COUNT,WBC 7.05 K/mm3 (3.98-10.04)
[2023-01-13] MEDS ORDERED: Ondansetron 4 MG/2 ML SDV IVPUSH ONE ×2 (20:04→22:42)
[2023-01-13] MEDS ORDERED: Lactated Ringers 2,000 ML IV ONE (20:04)
[2023-01-13] MEDS ORDERED: HYDROmorphone 0.5 MG/0.5 ML Syringe IVPUSH ONE ×3 (20:05→22:45)
[2023-01-13 20:22] LABS: ANION GAP 14.6 (5-15); BUN/CREATININE RATIO 8.8 (14-18); CREATININE 0.8 mg/dL (0.55-1.02); EST CRCL DRUG DOSING (CG) 95.05 mL/min; POTASSIUM,K 3.6 mEq/L (3.5-5.1)
[2023-01-13 20:23] LABS: A/G RATIO 1.1 (1-2); ALBUMIN 3.9 g/dl (3.4-5.0); BILIRUBIN TOTAL 0.3 mg/dL (0.2-1.0); CALCIUM 9.4 mg/dL (8.5-10.1); PROTEIN TOTAL,TP 7.6 g/dl (6.4-8.2)
[2023-01-14] MEDS ORDERED: HYDROmorphone 0.5 MG/0.5 ML Syringe IVPUSH ONE ×2 (00:44→00:58)
== END 2023-01-14 02:01 | disposition home or self-care (01) ==
LOC: JD.ED 19:19
DX: E86.0 Dehydration (principal); K21.9 Gastro-esophageal reflux disease without esophagitis; Z88.8 Allergy status to other drugs, medicaments and biological substances; Z86.16 Personal history of COVID-19
CPT/HCPCS: 36415; 74018; 74176; 80053; 83605; 84703; 85025; 96361; 96372; 96374; 96375; 96376; 99284; J1170; J2405; J2550; J7120

== ENCOUNTER 2023-01-28 21:39 | Emergency (ER) | payer BC, MEDICAID ==
[2023-01-28] MEDS ORDERED: Sodium Chloride 0.9% 1,000 ML IV ONE (22:15)
[2023-01-28] MEDS ORDERED: Promethazine 12.5 MG in Sodium Chloride 0.9% 50 ML IV ONE ×2 (22:15→23:54)
[2023-01-28] MEDS ORDERED: HYDROmorphone 1 MG/ML Syringe IVPUSH ONE (22:15)
[2023-01-28 22:57] LABS: MEAN CORPUSCULAR HEMOGLOBIN 28.9 pg (25.6-32.2); MEAN PLATELET VOLUME 9.9 fl (9.4-12.3); PLATELET COUNT,PLT 288 K/mm3 (182-369); RED BLOOD CELL COUNT 4.94 M/mm3 (3.98-5.22); WHITE BLOOD CELL COUNT,WBC 9.01 K/mm3 (3.98-10.04)
[2023-01-28 23:00] LABS: HEMOGLOBIN 14.3 gm/dl (11.2-15.7)
[2023-01-28 23:21] LABS: ALANINE AMINOTRANSFERASE,ALT 15 U/L (14-59); ALBUMIN 4.3 g/dl (3.4-5.0); ALKALINE PHOSPHATASE 77 U/L (46-116); ANION GAP 14.3 (5-15); ASPARTATE AMNIOTRANSFERASE,AST 15 U/L (15-37); BILIRUBIN TOTAL 0.4 mg/dL (0.2-1.0); BLOOD UREA NITROGEN,BUN 10 mg/dL (7-18); BUN/CREATININE RATIO 14.3 (14-18); CALCIUM 9.5 mg/dL (8.5-10.1); CARBON DIOXIDE,CO2 25 mEq/L (21-32); CHLORIDE,CL 103 mEq/L (98-107); CREATININE 0.7 mg/dL (0.55-1.02); ESTIMATED GFR 121 mL/min (>60); GLUCOSE RANDOM 87 mg/dL (70-99); LIPASE 296 U/L (73-393); MAGNESIUM 2.3 mg/dL (1.8-2.4); POTASSIUM,K 4.3 mEq/L (3.5-5.1); PROTEIN TOTAL,TP 8.5 g/dl (6.4-8.2); SODIUM,NA 138 mEq/L (136-145)
[2023-01-28 23:30] LABS: BAND PERCENT MAN 0 % (0-10); BASOPHILS PERCENT MAN 0 (0.1-1.2); EOSINOPHILS PERCENT MAN 2 % (0.7-5.8); LYMPHOCYTES % ATYPICAL MANUAL 0 %; LYMPHOCYTES PERCENT MAN 41 % (20-40); MONOCYTES PERCENT MAN 11 % (2-10)
[2023-01-28 23:31] LABS: PLATELET COUNT ESTIMATE ADEQUATE
[2023-01-28] MEDS ORDERED: Metoclopramide 10 MG/2 ML SDV IVPUSH STA (23:38)
== END 2023-01-29 02:16 | disposition home or self-care (01) ==
LOC: JD.ED 21:39
DX: R11.2 Nausea with vomiting, unspecified (principal); F17.290 Nicotine dependence, other tobacco product, uncomplicated; E66.9 Obesity, unspecified; Z86.16 Personal history of COVID-19; Z88.8 Allergy status to other drugs, medicaments and biological substances; Z79.899 Other long term (current) drug therapy
CPT/HCPCS: 36415; 80053; 83690; 83735; 85007; 85027; 96361; 96365; 96366; 96375; 99284; J1170; J2550; J2765; J3490; J7030

== ENCOUNTER 2023-06-17 22:03 | Emergency (ER) | payer BC, MEDICAID ==
[2023-06-17] MEDS ORDERED: Lactated Ringers 1,000 ML IV ONE (22:34)
[2023-06-17] MEDS ORDERED: Ketorolac 15 MG/ML SDV IVPUSH ONE (23:47)
== END 2023-06-18 01:14 | disposition home or self-care (01) ==
LOC: JD.ED 22:03
DX: S16.1XXA Strain of muscle, fascia and tendon at neck level, initial encounter (principal); E66.9 Obesity, unspecified; Z86.16 Personal history of COVID-19; Z79.899 Other long term (current) drug therapy; Z88.8 Allergy status to other drugs, medicaments and biological substances; V49.50XA Passenger injured in collision with unspecified motor vehicles in traffic accident, initial encounter; Y92.410 Unspecified street and highway as the place of occurrence of the external cause
CPT/HCPCS: 70450; 70450-26; 72125; 72125-26; 96361; 96374; 96375; 96376; 99282; 99284-25; J1885; J3360; J7120

== ENCOUNTER 2023-11-06 20:33 | Emergency (ER) | payer BC, MEDICAID ==
[2023-11-06] MEDS: Sodium Chloride 0.9% 10 ML Syringe FLUSH PRN (21:10)
[2023-11-06 21:22] LABS: BASOPHILS PERCENT AUTO 0.2 % (0.0-1.0); EOSINOPHILS ABSOLUTE AUTO 0.1 K/mm3 (0.0-0.4); EOSINOPHILS PERCENT AUTO 1.1 % (0.0-6.0); HEMATOCRIT 36.2 % (37.0-47.0); HEMOGLOBIN 12.5 gm/dl (12.0-16.0); IMMATURE GRAN ABSOLUTE AUTO 0.01 K/mm3 (0.00-0.05); IMMATURE GRAN PERCENT AUTO 0.1 % (0.0-0.4); LYMPHOCYTES ABSOLUTE AUTO 3.7 K/mm3 (1.0-4.8); LYMPHOCYTES PERCENT AUTO 41.6 % (24.0-44.0); MEAN CORPUSCULAR HEMOGLOBIN 30.1 pg (28.0-32.0); MEAN CORPUSCULAR HGB CONC 34.5 g/dl (32.0-36.0); MEAN CORPUSCULAR VOLUME 87.2 fl (83.0-99.0); MONOCYTES ABSOLUTE AUTO 0.6 K/mm3 (0.0-0.8); MONOCYTES PERCENT AUTO 6.7 % (0.0-8.0); NEUTROPHILS ABSOLUTE AUTO 4.4 K/mm3 (1.8-7.7); NEUTROPHILS PERCENT AUTO 50.3 % (41.0-71.0); PLATELET COUNT,PLT 230 K/mm3 (150-400); RED BLOOD CELL COUNT 4.15 M/mm3 (4.10-5.30); WHITE BLOOD CELL COUNT,WBC 8.82 K/mm3 (3.9-11.3)
[2023-11-06] MEDS: Lactated Ringers 1,000 ML IV SCH (21:30)
[2023-11-06 21:40] LABS: APPEARANCE,URINE CLEAR (Clear); BILIRUBIN,URINE NEGATIVE (Negative); COLOR,URINE YELLOW (Yellow); GLUCOSE,URINE NEGATIVE (Negative); KETONES,URINE NEGATIVE (Negative); LEUKOCYTE ESTERASE,URINE NEGATIVE (Negative); NITRITE,URINE NEGATIVE (Negative); OCCULT BLOOD,URINE NEGATIVE (Negative); PROTEIN,URINE NEGATIVE (Negative); UROBILINOGEN,URINE 0.2 (0.2-1.0)
[2023-11-06 21:51] LABS: AMORPHOUS SEDIMENT,URINE FEW /hpf (NOT SEEN); BACTERIA,URINE FEW /hpf (FEW); MUCUS,URINE FEW /hpf (FEW); RBC,URINE 0-5 /hpf (0-5); SQUAMOUS EPITHELIAL CELLS,UR 0-5 /hpf (0-5); WBC,URINE 0-5 /hpf (0-5)
[2023-11-06 22:05] LABS: A/G RATIO 1.3 (1-2); ALBUMIN 4.2 g/dl (3.4-5.0); ANION GAP 14.8 (5-15); BILIRUBIN TOTAL 0.2 mg/dL (0.2-1.0); BUN/CREATININE RATIO 16.7 (14-18); C-REACTIVE PROTEIN 0.05 mg/dL (<0.30); CALCIUM 9.2 mg/dL (8.5-10.1); CREATININE 0.6 mg/dL (0.55-1.02); EST CRCL DRUG DOSING (CG) 128.15 mL/min; POTASSIUM,K 3.8 mEq/L (3.5-5.1); PROTEIN TOTAL,TP 7.4 g/dl (6.4-8.2)
[2023-11-06] MEDS: Ondansetron 8 MG in Sodium Chloride 0.9% 50 ML IV ONE (22:13)
[2023-11-06] MEDS: Ketorolac 30 MG/ML SDV IVPUSH ONE (22:52)
== END 2023-11-06 23:10 | disposition home or self-care (01) ==
LOC: JD.ED 20:33
DX: R10.11 Right upper quadrant pain (principal); R74.8 Abnormal levels of other serum enzymes; K21.9 Gastro-esophageal reflux disease without esophagitis; E66.9 Obesity, unspecified; Z79.899 Other long term (current) drug therapy; Z86.16 Personal history of COVID-19; Z88.8 Allergy status to other drugs, medicaments and biological substances; Z68.32 Body mass index [BMI] 32.0-32.9, adult
CPT/HCPCS: 36415; 80053; 81001; 82150; 83690; 85025; 86140; 96361; 96374; 96375; 99284; J1885; J2405; J3490; J7120

== ENCOUNTER 2024-01-02 18:57 | Emergency (ER) | payer BC ==
[2024-01-02] MEDS ORDERED: Sodium Chloride 0.9% 1,000 ML IV SCH (19:30)
[2024-01-02 19:56] LABS: BASOPHILS PERCENT AUTO 0.5 % (0.0-1.0); EOSINOPHILS ABSOLUTE AUTO 0.1 K/mm3 (0.0-0.4); EOSINOPHILS PERCENT AUTO 0.6 % (0.0-6.0); HEMOGLOBIN 13.1 gm/dl (12.0-16.0); IMMATURE GRAN ABSOLUTE AUTO 0.02 K/mm3 (0.00-0.05); IMMATURE GRAN PERCENT AUTO 0.3 % (0.0-0.4); LYMPHOCYTES ABSOLUTE AUTO 3.1 K/mm3 (1.0-4.8); LYMPHOCYTES PERCENT AUTO 39.2 % (24.0-44.0); MEAN CORPUSCULAR HEMOGLOBIN 29.9 pg (28.0-32.0); MEAN CORPUSCULAR HGB CONC 34.5 g/dl (32.0-36.0); MEAN CORPUSCULAR VOLUME 86.8 fl (83.0-99.0); MEAN PLATELET VOLUME 10.1 fl (9.4-12.3); MONOCYTES ABSOLUTE AUTO 0.5 K/mm3 (0.0-0.8); MONOCYTES PERCENT AUTO 6.4 % (0.0-8.0); NEUTROPHILS ABSOLUTE AUTO 4.2 K/mm3 (1.8-7.7); PLATELET COUNT,PLT 244 K/mm3 (150-400); RED BLOOD CELL COUNT 4.38 M/mm3 (4.10-5.30); WHITE BLOOD CELL COUNT,WBC 7.83 K/mm3 (3.9-11.3)
[2024-01-02] MEDS: Ketorolac 30 MG/ML SDV IVPUSH ONE (19:58)
[2024-01-02] MEDS: HYDROmorphone 0.5 MG/0.5 ML Syringe IVPUSH ONE ×2 (19:58→21:00)
[2024-01-02] MEDS: Ondansetron 4 MG/2 ML SDV IVPUSH ONE (19:59)
[2024-01-02 20:24] LABS: A/G RATIO 1.1 (1-2); ALBUMIN 3.9 g/dl (3.4-5.0); ANION GAP 12.5 (5-15); BILIRUBIN TOTAL 0.3 mg/dL (0.2-1.0); CALCIUM 9.1 mg/dL (8.5-10.1); CREATININE 0.7 mg/dL (0.55-1.02); EST CRCL DRUG DOSING (CG) 107.67 mL/min; POTASSIUM,K 3.5 mEq/L (3.5-5.1); PROTEIN TOTAL,TP 7.6 g/dl (6.4-8.2)
[2024-01-02 21:00] LABS: APPEARANCE,URINE CLEAR (Clear); BILIRUBIN,URINE NEGATIVE (Negative); COLOR,URINE LIGHT YELLOW (Yellow); GLUCOSE,URINE NEGATIVE (Negative); KETONES,URINE NEGATIVE (Negative); LEUKOCYTE ESTERASE,URINE NEGATIVE (Negative); NITRITE,URINE NEGATIVE (Negative); OCCULT BLOOD,URINE NEGATIVE (Negative); PROTEIN,URINE NEGATIVE (Negative); UROBILINOGEN,URINE 0.2 (0.2-1.0)
[2024-01-02 21:29] LABS: BACTERIA,URINE FEW /hpf (FEW); MUCUS,URINE NOT SEEN /hpf (FEW); RBC,URINE 0-5 /hpf (0-5); SQUAMOUS EPITHELIAL CELLS,UR 0-5 /hpf (0-5); WBC,URINE 0-5 /hpf (0-5)
== END 2024-01-02 22:03 | disposition home or self-care (01) ==
LOC: JD.ED 18:57
DX: R10.30 Lower abdominal pain, unspecified (principal); E66.9 Obesity, unspecified; Z86.16 Personal history of COVID-19; Z79.899 Other long term (current) drug therapy; Z88.8 Allergy status to other drugs, medicaments and biological substances
CPT/HCPCS: 36415; 74176; 80053; 81001; 85025; 96374; 96375; 96376; 99284; J1170; J1885; J2405

== ENCOUNTER 2025-02-07 07:06 | Inpatient (IN) | payer BC ==
[~2025-02-07 07:06] MED LIST: Lidocaine 2% with EPINEPHrine 1:200,000 20 ML SDV ONE
[2025-02-07] MEDS ORDERED: Misoprostol 25 MCG (1/4 of 100 MCG) Tab VAG PRN (07:12)
[2025-02-07] MEDS ORDERED: Sodium Chloride 0.9% 10 ML Syringe FLUSH PRN (07:12)
[2025-02-07] MEDS ORDERED: Nalbuphine 10 MG/1 ML Vial IVPUSH PRN (07:12)
[2025-02-07] MEDS ORDERED: Oxytocin/0.9 % Sodium Chloride 30 UNIT/500 ML BAG IV SCH (07:15)
[2025-02-07 07:31] LABS: BASOPHILS ABSOLUTE AUTO 0.0 K/mm3 (0.0-0.2); BASOPHILS PERCENT AUTO 0.2 % (0.0-1.0); EOSINOPHILS ABSOLUTE AUTO 0.0 K/mm3 (0.0-0.4); EOSINOPHILS PERCENT AUTO 0.3 % (0.0-6.0); IMMATURE GRAN ABSOLUTE AUTO 0.05 K/mm3 (0.00-0.05); IMMATURE GRAN PERCENT AUTO 0.5 % (0.0-0.4); LYMPHOCYTES ABSOLUTE AUTO 3.3 K/mm3 (1.0-4.8); LYMPHOCYTES PERCENT AUTO 32.6 % (24.0-44.0); MEAN PLATELET VOLUME 10.9 fl (9.4-12.3); MONOCYTES ABSOLUTE AUTO 0.6 K/mm3 (0.0-0.8); MONOCYTES PERCENT AUTO 5.7 % (0.0-8.0); NEUTROPHILS ABSOLUTE AUTO 6.2 K/mm3 (1.8-7.7); NEUTROPHILS PERCENT AUTO 60.7 % (41.0-71.0); NRBC ABSOLUTE 0.00 (0.00-0.02); NRBC PERCENT 0.0 % (0.0-0.2); PLATELET COUNT,PLT 202 K/mm3 (150-400); RED BLOOD CELL COUNT 3.94 M/mm3 (4.10-5.30); WHITE BLOOD CELL COUNT,WBC 10.23 K/mm3 (3.9-11.3)
[2025-02-07] MEDS: Misoprostol 25 MCG (1/4 of 100 MCG) Tab VAG ONE (07:57)
[2025-02-07] MEDS: Propranolol 60 MG Cap.ER PO SCH (09:10)
[2025-02-07 11:02] LABS: CREATININE,URINE RAND 75.5 mg/dL (30.0-125.0); PROTEIN CREATININE RATIO,URINE 337.7 mg/g (0-149); PROTEIN,URINE RANDOM 25.5 mg/dL (0.0-11.8)
[2025-02-07 11:08] LABS: ALANINE AMINOTRANSFERASE,ALT 16.0 U/L (14-59); ASPARTATE AMNIOTRANSFERASE,AST 17.0 U/L (15-37); BLOOD UREA NITROGEN,BUN 8.0 mg/dL (7-18); CREATININE 0.6 mg/dL (0.55-1.02); EST CRCL DRUG DOSING (CG) 124.49 mL/min; ESTIMATED GFR 125.0 mL/min (>60); LACTATE DEHYDROGENASE,LDH 205.0 U/L (81-234)
[2025-02-07] MEDS: Ondansetron 4 MG/2 ML SDV IVPUSH PRN (11:40)
[2025-02-07] MEDS ORDERED: diphenhydrAMINE 50 MG/ML SDV IVPUSH PRN (13:38)
[2025-02-07] MEDS ORDERED: ePHEDrine 50 MG/ML SDV IVPUSH PRN (13:38)
[2025-02-07] MEDS: Lactated Ringers 1,000 ML IV SCH (13:53)
[2025-02-07] MEDS: Bupivacaine/fentaNYL/NS 100 ML Bag EPIDUR PRN (14:15)
[2025-02-07] MEDS: Oxytocin/0.9 % Sodium Chloride 30 UNIT/500 ML BAG IV SCH (17:05)
[2025-02-07] MEDS: Witch Hazel Medicated Pads 40/Jar TOP PRN (18:03)
[2025-02-07] MEDS: Benzocaine/Menthol 20%-0.5% Spray 78 GM Cannister TOP PRN (18:03)
[2025-02-07] MEDS: Sodium Chloride 0.9% 10 ML Syringe FLUSH SCH (18:46)
== END 2025-02-09 12:30 | disposition home or self-care (01) | DRG 560 ==
LOC: JD.OBCHECK 07:06 → JD.OB 07:11 → OBSVTOIN 17:04
PROVIDERS: ADMIT Obstetrics & Gynecology; ATTEND Obstetrics & Gynecology
PROC: 10E0XZZ Delivery of Products of Conception, External Approach (ICD-10-PCS; principal; 2025-02-07)
PROC: 10907ZC Drainage of Amniotic Fluid, Therapeutic from Products of Conception, Via Natural or Artificial Opening (ICD-10-PCS; principal; 2025-02-07)
PROC: 3E0R3BZ Introduction of Anesthetic Agent into Spinal Canal, Percutaneous Approach (ICD-10-PCS; principal; 2025-02-07)
PROC: 0KQM0ZZ Repair Perineum Muscle, Open Approach (ICD-10-PCS; principal; 2025-02-07)
DX: O14.94 Unspecified pre-eclampsia, complicating childbirth (principal); O36.5930 Maternal care for other known or suspected poor fetal growth, third trimester, not applicable or unspecified; O13.4 Gestational [pregnancy-induced] hypertension without significant proteinuria, complicating childbirth; Z88.8 Allergy status to other drugs, medicaments and biological substances; Z3A.37 37 weeks gestation of pregnancy; Z37.0 Single live birth; O99.214 Obesity complicating childbirth; Z86.16 Personal history of COVID-19; Z90.49 Acquired absence of other specified parts of digestive tract; Z98.890 Other specified postprocedural states; Z79.899 Other long term (current) drug therapy; O70.1 Second degree perineal laceration during delivery; Z87.891 Personal history of nicotine dependence
CPT/HCPCS: 36415; 51702; 59025; 59409; 82565; 82570; 83615; 84156; 84450; 84460; 84520; 84550; 85025; 86592; 86850; 86900; 86901; A9270-GY; C1726; J2405; J3490; J7120; J7999

== ENCOUNTER 2025-02-23 01:12 | Emergency (ER) | payer BC ==
[2025-02-23] MEDS ORDERED: Sodium Chloride 0.9% 10 ML Syringe FLUSH PRN (01:36)
[2025-02-23 01:43] LABS: BASOPHILS ABSOLUTE AUTO 0.0 K/mm3 (0.0-0.2); BASOPHILS PERCENT AUTO 0.5 % (0.0-1.0); EOSINOPHILS ABSOLUTE AUTO 0.1 K/mm3 (0.0-0.4); EOSINOPHILS PERCENT AUTO 1.2 % (0.0-6.0); IMMATURE GRAN ABSOLUTE AUTO 0.02 K/mm3 (0.00-0.05); IMMATURE GRAN PERCENT AUTO 0.3 % (0.0-0.4); LYMPHOCYTES ABSOLUTE AUTO 3.3 K/mm3 (1.0-4.8); LYMPHOCYTES PERCENT AUTO 43.1 % (24.0-44.0); MEAN PLATELET VOLUME 9.5 fl (9.4-12.3); MONOCYTES ABSOLUTE AUTO 0.5 K/mm3 (0.0-0.8); MONOCYTES PERCENT AUTO 6.0 % (0.0-8.0); NEUTROPHILS ABSOLUTE AUTO 3.7 K/mm3 (1.8-7.7); NEUTROPHILS PERCENT AUTO 48.9 % (41.0-71.0); NRBC ABSOLUTE 0.00 (0.00-0.02); NRBC PERCENT 0.0 % (0.0-0.2); PLATELET COUNT,PLT 234 K/mm3 (150-400); RED BLOOD CELL COUNT 3.88 M/mm3 (4.10-5.30); WHITE BLOOD CELL COUNT,WBC 7.65 K/mm3 (3.9-11.3)
[2025-02-23 02:07] LABS: A/G RATIO 0.8 (1-2); ALANINE AMINOTRANSFERASE,ALT 16 U/L (14-59); ASPARTATE AMNIOTRANSFERASE,AST 20 U/L (15-37); BILIRUBIN TOTAL 0.2 mg/dL (0.2-1.0); BLOOD UREA NITROGEN,BUN 17 mg/dL (7-18); CARBON DIOXIDE,CO2 27 mEq/L (21-32); CHLORIDE,CL 104 mEq/L (98-107); CREATININE 0.6 mg/dL (0.55-1.02); EST CRCL DRUG DOSING (CG) 124.49 mL/min; ESTIMATED GFR 125 mL/min (>60); GLUCOSE RANDOM 101 mg/dL (70-99); LACTATE DEHYDROGENASE,LDH 196 U/L (81-234); POTASSIUM,K 3.8 mEq/L (3.5-5.1); PROTEIN TOTAL,TP 7.1 g/dl (6.4-8.2); SODIUM,NA 140 mEq/L (136-145)
[2025-02-23 02:09] LABS: TROPONIN I HIGH SENSITIVITY < 4 pg/mL (<=51)
[2025-02-23 02:37] LABS: CREATININE,URINE RAND 99.1 mg/dL (30.0-125.0); PROTEIN CREATININE RATIO,URINE 157.4 mg/g (0-149); PROTEIN,URINE RANDOM 15.6 mg/dL (0.0-11.8)
[2025-02-23] MEDS: Magnesium Sulfate 2 GM/50 mL 2 GM in Premix Bag 1 BAG IV ONE (05:10)
[2025-02-23] MEDS: NIFEdipine 30 MG Tab.ER PO ONE (05:11)
== END 2025-02-23 07:15 | disposition home or self-care (01) ==
LOC: JD.ED 01:12
DX: O10.03 Pre-existing essential hypertension complicating the puerperium (principal); O99.285 Endocrine, nutritional and metabolic diseases complicating the puerperium; E83.42 Hypomagnesemia; Z87.59 Personal history of other complications of pregnancy, childbirth and the puerperium; Z88.8 Allergy status to other drugs, medicaments and biological substances; Z91.030 Bee allergy status; Z79.899 Other long term (current) drug therapy; Z86.16 Personal history of COVID-19
CPT/HCPCS: 36415; 80053; 82570; 83540; 83615; 83735; 84156; 84484; 85025; 93005; 96365; 96366; 99285; A9270; J3475; 93010; 99284

== ENCOUNTER 2025-04-25 16:12 | Emergency (ER) | payer BC ==
[2025-04-25] MEDS ORDERED: Sodium Chloride 0.9% 10 ML Syringe FLUSH PRN (16:26)
[2025-04-25 17:01] LABS: BASOPHILS ABSOLUTE AUTO 0.0 K/mm3 (0.0-0.2); BASOPHILS PERCENT AUTO 0.4 % (0.0-1.0); EOSINOPHILS ABSOLUTE AUTO 0.1 K/mm3 (0.0-0.4); EOSINOPHILS PERCENT AUTO 2.0 % (0.0-6.0); IMMATURE GRAN ABSOLUTE AUTO 0.01 K/mm3 (0.00-0.05); IMMATURE GRAN PERCENT AUTO 0.1 % (0.0-0.4); LYMPHOCYTES ABSOLUTE AUTO 2.6 K/mm3 (1.0-4.8); LYMPHOCYTES PERCENT AUTO 37.3 % (24.0-44.0); MEAN PLATELET VOLUME 10.1 fl (9.4-12.3); MONOCYTES ABSOLUTE AUTO 0.6 K/mm3 (0.0-0.8); MONOCYTES PERCENT AUTO 8.3 % (0.0-8.0); NEUTROPHILS ABSOLUTE AUTO 3.6 K/mm3 (1.8-7.7); NEUTROPHILS PERCENT AUTO 51.9 % (41.0-71.0); NRBC ABSOLUTE 0.00 (0.00-0.02); NRBC PERCENT 0.0 % (0.0-0.2); PLATELET COUNT,PLT 195 K/mm3 (150-400); RED BLOOD CELL COUNT 4.09 M/mm3 (4.10-5.30); WHITE BLOOD CELL COUNT,WBC 7.00 K/mm3 (3.9-11.3)
[2025-04-25 17:26] LABS: A/G RATIO 0.9 (1-2); ALANINE AMINOTRANSFERASE,ALT 18 U/L (14-59); ASPARTATE AMNIOTRANSFERASE,AST 16 U/L (15-37); BILIRUBIN TOTAL 0.1 mg/dL (0.2-1.0); BLOOD UREA NITROGEN,BUN 14 mg/dL (7-18); CARBON DIOXIDE,CO2 25 mEq/L (21-32); CHLORIDE,CL 106 mEq/L (98-107); CREATININE 0.6 mg/dL (0.55-1.02); EST CRCL DRUG DOSING (CG) 124.49 mL/min; ESTIMATED GFR 125 mL/min (>60); GLUCOSE RANDOM 114 mg/dL (70-99); POTASSIUM,K 4.2 mEq/L (3.5-5.1); PROTEIN TOTAL,TP 8.0 g/dl (6.4-8.2); SODIUM,NA 140 mEq/L (136-145)
[2025-04-25 17:36] LABS: TROPONIN I HIGH SENSITIVITY < 4 pg/mL (<=51)
== END 2025-04-25 18:40 | disposition home or self-care (01) ==
LOC: JD.ED 16:12
DX: R00.0 Tachycardia, unspecified (principal); E66.9 Obesity, unspecified; Z68.36 Body mass index [BMI] 36.0-36.9, adult; Z86.16 Personal history of COVID-19; Z90.49 Acquired absence of other specified parts of digestive tract; Z88.8 Allergy status to other drugs, medicaments and biological substances; Z91.048 Other nonmedicinal substance allergy status; Z79.899 Other long term (current) drug therapy
CPT/HCPCS: 36415; 71045; 71045-26; 80053; 83735; 83880; 84484; 85025; 93005; 93246; 99285